=== PATIENT | male | born 1980 | race Two or more races ===

== ENCOUNTER 2019-11-18 04:27 | Emergency (ER) | payer SELFPAY ==
[2019-11-18] MEDS ORDERED: Penicillin G Benzathine/Procaine 600-600 1.2 Millunits/2 ML Syringe IM ONE (05:13)
--- NOTE | 2019-11-18 05:13 | EDM.PDOC ---
ED HPI GENERAL MEDICAL PROBLEM - General Chief Complaint: ENT Problem Stated Complaint: SOB Time Seen by Provider: 11/18/19 04:35 Source of Information: Reports: Patient History Limitations: Reports: No Limitations - History of Present Illness INITIAL COMMENTS - FREE TEXT/NARRATIVE: sudden onset of cough and shortness of breath with sore throat happened yesterday has low grade fever states throat hurts with coughing unsure of contacts and source of exposure Onset: Today Onset Date: 11/18/19 - Related Data Allergies Allergy/AdvReac Type Severity Reaction Status Date / Time No Known Allergies Allergy Verified 11/18/19 04:54 Home Meds: Home Meds . [No Known Home Meds] 11/18/19 [History] Benzonatate [Tessalon Perle] 100 mg PO TID #30 capsule 11/18/19 [Rx] Oseltamivir [Tamiflu] 75 mg PO BID #10 cap 11/18/19 [Rx] Penicillin V Potassium [Veetids] 500 mg PO Q8H #30 tab 11/18/19 [Rx] Social & Family History - Tobacco Use Smoking Status *Q: Never Smoker - Caffeine Use Caffeine Use: Reports: None - Recreational Drug Use Recreational Drug Use: No ED ROS ENT - Review of Systems Review Of Systems: See Below Constitutional: Reports: Fever, Chills, Malaise, Weakness, Fatigue, Diaphoresis HEENT: Reports: Rhinitis, Throat Pain, Throat Swelling. Denies: Vision Change Respiratory: Reports: Shortness of Breath, Cough, Sputum Cardiovascular: Reports: No Symptoms Endocrine: Reports: No Symptoms GI/Abdominal: Reports: No Symptoms : Reports: No Symptoms Musculoskeletal: Reports: Neck Pain. Denies: Joint Swelling Skin: Reports: No Symptoms Neurological: Denies: Confusion, Dizziness, Weakness Psychiatric: Reports: No Symptoms Hematologic/Lymphatic: Reports: No Symptoms Immunologic: Reports: No Symptoms ED EXAM, ENT - Physical Exam Exam: See Below Text/Narrative:: I ll looking Exam Limited By: No Limitations General Appearance: Alert, WD/WN, No Apparent Distress Eye Exam: Bilateral Eye: EOMI Ears: TM Bulging, TM Dullness Nose: Clear Rhinorrhea. No: Nasal Discharge Mouth/Throat: Muffled Voice, Pharyngeal Erythema, Tonsillar Swelling Head: Atraumatic, Normocephalic Neck: Supple, Non-Tender, Full Range of Motion Respiratory/Chest: No Respiratory Distress, Lungs Clear Cardiovascular: Regular Rate, Rhythm GI/Abdominal: Soft, Non-Tender Course - Vital Signs Last Recorded V/S: Last Vital Signs Temp 37.7 C 11/18/19 04:27 Pulse 120 H 11/18/19 04:27 Resp 15 11/18/19 04:27 BP 128/82 11/18/19 04:27 Pulse Ox 98 11/18/19 04:27 - Orders/Labs/Meds Orders: Active Orders 24 hr Category Date Time Status INFLUENZA A+B AG SCREEN [RM] Stat Lab 11/18/19 04:57 Ordered STREP SCRN A RAPID W CULT CONF [RM] Stat Lab 11/18/19 04:57 Ordered Departure - Departure Time of Disposition: 05:45 Disposition: Home, Self-Care 01 Condition: Fair Clinical Impression: Acute bacterial pharyngitis, Exposure to influenza - Discharge Information *PRESCRIPTION DRUG MONITORING PROGRAM REVIEWED*: Not Applicable *COPY OF PRESCRIPTION DRUG MONITORING REPORT IN PATIENT HUSAM: Not Applicable Instructions: Droplet Precautions, [id number], Contact Precautions, Easy-to- Read Referrals: PCP,None [Primary Care Provider] - Additional Instructions: 1) OK to use Ibuprofen for sore throat and fever drink lots of water 2) Ok to use over the counter medication for cough 3) Where mask at home so you do not cough all over OR cover your cough with your shirt sleeve 4) Your and child may get sick too Sepsis Event Note - Evaluation Sepsis Screening Result: No Definite Risk - Focused Exam Vital Signs: Vital Signs Temp Pulse Resp BP Pulse Ox 11/18/19 04:27 37.7 C 120 H 15 128/82 98 Date Exam was Performed: 11/18/19 Time Exam was Performed: 05:03 - My Orders Last 24 Hours: My Active Orders 11/18/19 04:57 INFLUENZA A+B AG SCREEN [RM] Stat STREP SCRN A RAPID W CULT CONF [RM] Stat - Assessment/Plan Last 24 Hours: My Active Orders 11/18/19 04:57 INFLUENZA A+B AG SCREEN [RM] Stat STREP SCRN A RAPID W CULT CONF [RM] Stat
[2019-11-18] MEDS ORDERED: Ketorolac 60 MG/2 ML SDV IM ONE (05:31)
== END 2019-11-18 06:00 | disposition home or self-care (01) ==
LOC: FB.ED 04:27
DX: J02.8 Acute pharyngitis due to other specified organisms (principal); Z20.828 Contact with and (suspected) exposure to other viral communicable diseases
CPT/HCPCS: 87081; 87804; 87880; 96372; 99282; 99283; J0558; J1885

== ENCOUNTER 2023-01-06 22:07 | Emergency (ER) | payer SELFPAY ==
[2023-01-06 23:04] LABS: CORONAVIRUS COVID-19 NAA NEGATIVE (NEGATIVE)
== END 2023-01-06 23:28 | disposition home or self-care (01) ==
LOC: FB.ED 22:07
DX: J11.1 Influenza due to unidentified influenza virus with other respiratory manifestations (principal); Z20.822 Contact with and (suspected) exposure to COVID-19
CPT/HCPCS: 0241U; 99283